=== PATIENT | female | born 1945 | race Caucasian/White ===

== ENCOUNTER → 2019-12-28 | Outpatient (CLI) | payer MEDICARE, BC ==
[2019-12-28 10:34] LABS: ABSOLUTE BASOPHILS # (AUTO) 0.1 10^3/uL (0.0-0.2); ABSOLUTE EOSINOPHILS # (AUTO) 0.3 10^3/uL (0.0-0.6); ABSOLUTE LYMPHOCYTES (AUTO) 1.4 10^3/uL (0.5-4.7); ABSOLUTE MONOCYTES (AUTO) 0.6 10^3/uL (0.1-1.4); ABSOLUTE NEUT (AUTO) 5.3 10^3/uL (1.7-8.2); EOSINOPHILS % (AUTO) 3.5 % (0-6); HEMATOCRIT 43.4 % (36.0-47.0); HEMOGLOBIN 14.7 g/dL (12.0-15.5); LYMPHOCYTES % (AUTO) 18.5 % (13-45); MEAN CORPUSCULAR HEMOGLOBIN 32.8 pg (27.0-33.4); MEAN CORPUSCULAR HGB CONC 33.9 g/dL (32.0-36.0); MEAN CORPUSCULAR VOLUME 97 fl (80-97); MONOCYTES % (AUTO) 7.5 % (3-13); PLATELET COUNT 263 10^3/uL (150-450); RED BLOOD COUNT 4.49 10^6/uL (3.72-5.28); RED CELL DISTRIBUTION WIDTH 14.6 % (11.5-14.0); SEGMENTED NEUTROPHILS % (AUTO) 69.5 % (42-78); TOTAL CELLS COUNTED % (AUTO) 100 %; WHITE BLOOD COUNT 7.7 10^3/uL (4.0-10.5)
[2019-12-28 10:36] LABS: ANION GAP 10 (5-19); BLOOD UREA NITROGEN 33 mg/dL (7-20); CALCIUM 11.3 mg/dL (8.4-10.2); CARBON DIOXIDE 29 mmol/L (22-30); CHLORIDE 101 mmol/L (98-107); GLUCOSE 106 mg/dL (75-110); POTASSIUM 4.6 mmol/L (3.6-5.0)
[2019-12-28 10:51] LABS: FREE T3 3.4 pg/mL (2.77-5.27); FREE T4 (FREE THYROXINE) 0.97 ng/dL (0.78-2.19)
[2019-12-28 11:05] LABS: THYROID STIMULATING HORMONE 1.43 uIU/mL (0.47-4.68)
== END ==
LOC: OD 09:25
PROVIDERS: ATTEND Surgery
DX: E04.2 Nontoxic multinodular goiter (principal)
CPT/HCPCS: 36415; 80048; 84439; 84443; 84481; 85025

== ENCOUNTER 2020-01-25 05:41 | Observation (INO) | payer MEDICARE, BC ==
[2020-01-20 11:19] LABS: ABSOLUTE EOSINOPHILS # (AUTO) 0.3 10^3/uL (0.0-0.6); ABSOLUTE LYMPHOCYTES (AUTO) 1.4 10^3/uL (0.5-4.7); ABSOLUTE MONOCYTES (AUTO) 0.6 10^3/uL (0.1-1.4); ABSOLUTE NEUT (AUTO) 6.9 10^3/uL (1.7-8.2); BASOPHILS % (AUTO) 0.2 % (0-2); HEMATOCRIT 42.1 % (36.0-47.0); HEMOGLOBIN 14.2 g/dL (12.0-15.5); LYMPHOCYTES % (AUTO) 15.2 % (13-45); MEAN CORPUSCULAR HEMOGLOBIN 32.9 pg (27.0-33.4); MEAN CORPUSCULAR HGB CONC 33.7 g/dL (32.0-36.0); MEAN CORPUSCULAR VOLUME 97 fl (80-97); MONOCYTES % (AUTO) 6.4 % (3-13); PLATELET COUNT 283 10^3/uL (150-450); RED BLOOD COUNT 4.32 10^6/uL (3.72-5.28); RED CELL DISTRIBUTION WIDTH 14.5 % (11.5-14.0); SEGMENTED NEUTROPHILS % (AUTO) 75.2 % (42-78); TOTAL CELLS COUNTED % (AUTO) 100 %; WHITE BLOOD COUNT 9.2 10^3/uL (4.0-10.5)
[2020-01-20 11:42] LABS: ANION GAP 13 (5-19); BLOOD UREA NITROGEN 30 mg/dL (7-20); CARBON DIOXIDE 28 mmol/L (22-30); CHLORIDE 101 mmol/L (98-107); GLUCOSE 154 mg/dL (75-110); POTASSIUM 4.8 mmol/L (3.6-5.0)
--- NOTE | 2020-01-20 12:39 | EKG REPORT ---
SEVERITY:- ABNORMAL ECG - SINUS RHYTHM LEFT VENTRICULAR HYPERTROPHY LATERAL INFARCT, OLD : Confirmed by: Gopi Lim MD 20-Jan-2020 12:38:52
[~2020-01-25 05:41] MED LIST: CEFAZOLIN 2 GM/D5W RTU 2 GM/50 ML RTUPB IV ONE; CEFAZOLIN 2 GM/D5W RTU 2 GM/50 ML RTUPB IV PRN; CEFAZOLIN SODIUM 2 GM in DEXTROSE 5%-WATER 100 ML IV PRN; LACTATED RINGERS 1000 ML IV PRN; LIDOCAINE 0.5% INJ-PF (5 MG/ML) 50 ML SDV SUBCUT PRN
[2020-01-25] MEDS ORDERED: LIDOCAINE 2% INJ-PF (20 MG/ML) 10 ML AMPUL ONE (06:56)
[2020-01-25] MEDS ORDERED: DEXAMETHASONE SOD PHOSPHATE INJ 4 MG/1 ML VIAL ONE (06:57)
[2020-01-25] MEDS ORDERED: ONDANSETRON HCL INJ/PF 4 MG/2 ML SDV ONE (06:57)
[2020-01-25] MEDS ORDERED: HYDROMORPHONE HCL INJ/PF 2 MG/ML AMPULE ONE (06:57)
[2020-01-25] MEDS ORDERED: FENTANYL CITRATE INJ/PF 100 MCG/2 ML AMPUL ONE (06:57)
[2020-01-25] MEDS ORDERED: PROPOFOL INJ 200 MG/20 ML VIAL IV ONE (06:57)
[2020-01-25] MEDS ORDERED: PROMETHAZINE HCL INJ 25 MG/1 ML VIAL IV PRN ×2 (08:26)
[2020-01-25] MEDS ORDERED: OXYCODONE-ACETAMINOPHEN 5-325 MG TABLET PO PRN ×2 (08:26)
[2020-01-25] MEDS ORDERED: MORPHINE SULFATE 10 MG/ML INJ IV PRN (08:26)
[2020-01-25] MEDS ORDERED: FENTANYL CITRATE INJ/PF 100 MCG/2 ML AMPUL IV PRN ×3 (08:26)
[2020-01-25] MEDS ORDERED: DIPHENHYDRAMINE HCL 50 MG/ML VIAL IV PRN (08:26)
[2020-01-25] MEDS ORDERED: MEPERIDINE HCL/PF INJ 25 MG/1 ML DISP.SYRIN IV PRN (08:26)
[2020-01-25] MEDS ORDERED: SUGAMMADEX SODIUM 200 MG/2 ML SDV IV ONE (09:22)
[2020-01-25] MEDS ORDERED: ONDANSETRON HCL INJ/PF 4 MG/2 ML SDV IV PRN (09:32)
--- NOTE | 2020-01-25 09:55 | Operative Report ---
Nonrecallable Operative Report DATE OF SURGERY: 01/25/20 PREOPERATIVE DIAGNOSIS: Multinodular goiter POSTOPERATIVE DIAGNOSIS: Multinodular goiter OPERATION: Total thyroidectomy SURGEON: PETERSON JULIO ANESTHESIA: GA TISSUE REMOVED OR ALTERED: Thyroid gland COMPLICATIONS: None ESTIMATED BLOOD LOSS: 25 cc INTRAOPERATIVE FINDINGS: See note PROCEDURE: Patient was brought to the operating when awake alert in stable condition placed on the operating table supine position induced under general anesthesia and intubated. After appropriate timeout and site verification the procedure commenced. A curvilinear collar incision was made with a 15 blade dissection carried down through subtenons tissue with Bovie cautery. The platysma muscle was with Bovie cautery. Superior and inferior skin flaps were raised. Thyroid retractor was placed. Midline lymph raphae was divided with Bovie cautery and the green color retractor was utilized to retract the right-sided strap muscles. A Myke clamp was placed on the thyroid and was retracted medially. The inferior thyroidal artery was identified as was the recurrent laryngeal nerve as it exited the chest on the right side. The nerve was traced behind the inferior thyroidal artery which was ligated with hemoclips and divided the recu rrent laryngeal nerve was then traced underneath the lateral edge of the thyroid gland into the cricopharyngeus muscle. We identified the inferior parathyroid gland on the right side. We then took t he superior thyroidal vessels between 2-0 silk ties. We mobilized the thyroid medially divided Francis's ligament carefully noting the course of the recurrent laryngeal nerve and protected preserving that. The superior thyroid gland was also identified on the right side and preserved. The thyroid was divided from Francis's ligament with sharp dissection all the way to the isthmus. Attention was then turned to the left side. Similarly on the left side the strap muscles were retracted laterally the thyroid was placed on traction with a Myke clamp we identified the recurrent laryngeal nerve as it exited the chest traced it behind the inferior thyroidal artery which was divided with hemoclips and traced the nerve to the cricopharyngeus muscle. The thyroid was retracted medially a large the parathyroid gland at the superior position on the left side was identified and biopsied. 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 It was left in situ. Because of its slightly larger size I marked it with a 4-0 Prolene suture. Once this was completed I mobilized the thyroid medially identifying the middle thyroidal vein dividing that between hemoclips and then mobilized the thyroid medially always preserving the recurrent laryngeal nerve as it exited the chest and traced it behind the thyroid gland into the cricopharyngeus muscle. Also the superior thyroidal vessels were divided between 0 silk ligatures. Thyroid was then mobilized to the isthmus and removed from the patient including the pyramidal lobe. Hemostasis was obtained with pressure and Surgicel the midline raphae was then reclosed with interrupted 3-0 Vicryl sutures the platysma muscle was handled similarly and the skin was closed with intracuticular 4-0 Biosyn Steri-Strips completed the procedure. Estimated blood loss was less than 25 cc sponge needle counts correct x2 the patient was awakened in the operating extubated transferred recovery in stable condition no complications.
[2020-01-25] MEDS: MORPHINE SULFATE 10 MG/ML INJ IV PRN ×3 (12:24→21:23)
[2020-01-25] MEDS: FAMOTIDINE INJ/PF 20 MG/2 ML SDV IV SCH ×2 (14:57→21:23)
[2020-01-25] MEDS: CALCIUM CARBONATE 600 MG TABLET PO SCH ×4 (14:57→21:23)
[2020-01-25] MEDS ORDERED: PHENYLEPHRINE HCL INJ/PF 10 MG/1 ML SDV ONE (16:13)
[2020-01-25] MEDS ORDERED: GLYCOPYRROLATE 1 MG/5 ML VIAL ONE (16:13)
[2020-01-25] MEDS ORDERED: NEOSTIGMINE METHYLSULFATE 10 MG/10 ML VIAL ONE (16:13)
[2020-01-25] MEDS: POTASSI CL 20 MEQ/1/2NS 1L 20 MEQ/1,000 ML RTUINJ IV PRN (21:24)
[2020-01-26] MEDS: POTASSI CL 20 MEQ/1/2NS 1L 20 MEQ/1,000 ML RTUINJ IV PRN (06:20)
[2020-01-26] MEDS: MORPHINE SULFATE 10 MG/ML INJ IV PRN (06:20)
[2020-01-26 07:39] LABS: HEMATOCRIT 36.2 % (36.0-47.0); HEMOGLOBIN 12.3 g/dL (12.0-15.5); MEAN CORPUSCULAR HEMOGLOBIN 32.9 pg (27.0-33.4); MEAN CORPUSCULAR HGB CONC 33.9 g/dL (32.0-36.0); MEAN CORPUSCULAR VOLUME 97 fl (80-97); PLATELET COUNT 231 10^3/uL (150-450); RED BLOOD COUNT 3.73 10^6/uL (3.72-5.28); RED CELL DISTRIBUTION WIDTH 14.3 % (11.5-14.0); WHITE BLOOD COUNT 11.5 10^3/uL (4.0-10.5)
[2020-01-26] MEDS ORDERED: HYDROCHLOROTHIAZIDE 25 MG TABLET PO SCH (08:00)
[2020-01-26 08:04] LABS: ANION GAP 8 (5-19); BLOOD UREA NITROGEN 27 mg/dL (7-20); CALCIUM 9.6 mg/dL (8.4-10.2); CARBON DIOXIDE 27 mmol/L (22-30); CHLORIDE 104 mmol/L (98-107); GLUCOSE 98 mg/dL (75-110); POTASSIUM 4.7 mmol/L (3.6-5.0)
[2020-01-26] MEDS: FAMOTIDINE INJ/PF 20 MG/2 ML SDV IV SCH (09:25)
[2020-01-26] MEDS: CALCIUM CARBONATE 600 MG TABLET PO SCH (09:26)
--- NOTE | 2020-01-26 09:47 | PDOC DISCHARGE SUMMARY ---
General - Admit/Disc Date/PCP Admission Date/Primary Care Provider: 01/25/20 09:32 RACHEL MCRAE MD Discharge Date: 01/26/20 - Discharge Diagnosis Final Diagnosis: multinodular goiter - Assessment Summary: Ms. Consuelo Hansen was admitted the day of surgery on 01/25/2020 for an elective total thyroidectomy for multinodular goiter. She underwent an uncomplicated procedure and tolerated well. Postoperative day 1 she is doing well she had normal voice and her calcium levels were stable. She is ready for discharge home today. She will be given a follow-up appointment in 7 to 10 days. She will be started on Synthroid 100 mcg p.o. daily and being discharged home on Os-Aj 600 mg p.o. twice daily - Additional Information Resuscitation Status: Full Code Discharge Diet: As Tolerated Discharge Activity: Activity As Tolerated, No Lifting Over 10 Pounds Referrals: RACHEL MCRAE MD [Primary Care Provider] - Prescriptions: Calcium Carbonate/Vitamin D3 [Calcium 500-Vit D3 600 Tablet] 1 each PO BID #60 tablet Hydrocodone/Acetaminophen [[place] 7.5-325 Tablet] 1 each PO Q6HP PRN #20 tablet PRN Reason: Levothyroxine Sodium [Synthroid 0.1 mg Tablet] 0.1 mg PO DAILY #100 tablet Home Medications: Hydrochlorothiazide [Hydrodiuril 25 mg Tablet] 25 mg PO QAM 01/20/20 Latanoprost [Xalatan] 2.5 ml OP DAILY 01/20/20 Lisinopril [Zestril] 30 mg PO DAILY 01/20/20 Multivitamin [Multivitamins] 1 each PO DAILY 01/20/20 Psyllium Husk [Daily Fiber] 0.4 gm PO QID 01/20/20 Rosuvastatin Calcium 10 mg PO QHS 01/20/20 Timolol [Betimol] 1 drop OP BID 01/20/20 Calcium Carbonate/Vitamin D3 [Calcium 500-Vit D3 600 Tablet] 1 each PO BID #60 tablet 01/26/20 Hydrocodone/Acetaminophen [[place] 7.5-325 Tablet] 1 each PO Q6HP PRN #20 tablet 01/26/20 Levothyroxine Sodium [Synthroid 0.1 mg Tablet] 0.1 mg PO DAILY #100 tablet 01/26/20 History of Present Illiness History of Present Illness: CONSUELO HANSEN is a 74 year old female Physical Exam Vital Signs: Temp Pulse Resp BP Pulse Ox 97.6 F 80 16 118/62 99 01/26/20 07:23 01/26/20 07:23 01/26/20 07:23 01/26/20 07:23 01/26/20 07:23 Intake & Output 01/25/20 01/26/20 01/27/20 06:59 06:59 06:59 Intake Total 0 2930 Output Total 50 Balance 0 2880 Weight 86.8 kg Results Laboratory Results: WBC 11.5 10^3/uL (4.0-10.5) H 01/26/20 06:45 RBC 3.73 10^6/uL (3.72-5.28) 01/26/20 06:45 Hgb 12.3 g/dL (12.0-15.5) 01/26/20 06:45 Hct 36.2 % (36.0-47.0) 01/26/20 06:45 MCV 97 fl (80-97) 01/26/20 06:45 MCH 32.9 pg (27.0-33.4) 01/26/20 06:45 MCHC 33.9 g/dL (32.0-36.0) 01/26/20 06:45 RDW 14.3 % (11.5-14.0) H 01/26/20 06:45 Plt Count 231 10^3/uL (150-450) 01/26/20 06:45 Lymph % (Auto) 15.2 % (13-45) 01/20/20 10:41 H[place]ett % (Auto) 6.4 % (3-13) 01/20/20 10:41 Eos % (Auto) 3.0 % (0-6) 01/20/20 10:41 Baso % (Auto) 0.2 % (0-2) 01/20/20 10:41 Absolute Neuts (auto) 6.9 10^3/uL (1.7-8.2) 01/20/20 10:41 Absolute Lymphs (auto) 1.4 10^3/uL (0.5-4.7) 01/20/20 10:41 Absolute Monos (auto) 0.6 10^3/uL (0.1-1.4) 01/20/20 10:41 Absolute Eos (auto) 0.3 10^3/uL (0.0-0.6) 01/20/20 10:41 Absolute Basos (auto) 0.0 10^3/uL (0.0-0.2) 01/20/20 10:41 Seg Neutrophils % 75.2 % (42-78) 01/20/20 10:41 Sodium 138.8 mmol/L (137-145) 01/26/20 06:45 Potassium 4.7 mmol/L (3.6-5.0) 01/26/20 06:45 Chloride 104 mmol/L (98-107) 01/26/20 06:45 Carbon Dioxide 27 mmol/L (22-30) 01/26/20 06:45 Anion Gap 8 (5-19) 01/26/20 06:45 BUN 27 mg/dL (7-20) H 01/26/20 06:45 Creatinine 1.02 mg/dL (0.52-1.25) 01/26/20 06:45 Est GFR ( Amer) > 60 (>60) 01/26/20 06:45 Est GFR (MDRD) Non-Af 53 (>60) L 01/26/20 06:45 Glucose 98 mg/dL (75-110) 01/26/20 06:45 Calcium 9.6 mg/dL (8.4-10.2) 01/26/20 06:45 Calcium Cancelled 01/26/20 06:45 PTH Intact 58.1 pg/mL (10.0-65.0) 01/25/20 06:27 COVID-19 Source See comment 01/20/20 10:36 COVID-19 (ESTHELA) Not Detected (Not Detect) 01/20/20 10:36
[2020-01-26] MEDS ORDERED: BENZOCAINE/MENTHOL SORE THROAT LOZENGE BUCCAL PRN (09:48)
[2020-01-26 09:53] VITALS: BP 122/63
[2020-01-26] MEDS ORDERED: LISINOPRIL 10 MG TABLET PO SCH (10:00)
[2020-01-26] MEDS ORDERED: TIMOLOL OP SCH (10:00)
[2020-01-26] MEDS ORDERED: LISINOPRIL 30 MG PO SCH (10:00)
== END 2020-01-26 11:36 | disposition home or self-care (01) ==
LOC: OROUT 05:41 → 2N 09:32 → OROUT 11:04 → 2N 11:05
PROVIDERS: ADMIT Surgery; ATTEND Surgery
DX: E04.2 Nontoxic multinodular goiter (principal); D76.3 Other histiocytosis syndromes; E06.3 Autoimmune thyroiditis; Z20.828 Contact with and (suspected) exposure to other viral communicable diseases; Z87.898 Personal history of other specified conditions; I10 Essential (primary) hypertension; R05 Cough; G47.00 Insomnia, unspecified; M19.90 Unspecified osteoarthritis, unspecified site; Z79.899 Other long term (current) drug therapy; Z87.891 Personal history of nicotine dependence; Z90.12 Acquired absence of left breast and nipple; Z85.3 Personal history of malignant neoplasm of breast; Z86.718 Personal history of other venous thrombosis and embolism
CPT/HCPCS: 93005; 36415 ×3; 82310; 84132; 85025; 85027; 80048 ×2; 83970 ×2; 88305 ×2; 88307 ×2; 88331 ×2; 94799; 93010; 00320; 60240; G0378 ×2; U0003; J0690 ×2; J1100; J3480 ×2; J3010; A9270 ×4; J2270 ×2; J2710; J1170; J2370; J2405; J7060; J2704; S0028 ×2; J3490 ×2; C9803; 320; 87635